=== PATIENT | male | born 1975 | race Caucasian/White ===

== ENCOUNTER 2022-04-24 23:33 | Emergency (ER) | payer MEDICAID ==
[~2022-04-24] VITALS: Ht 167.6 cm; Wt 73.0 kg
[2022-04-25 00:04] VITALS: BP 140/86
[2022-04-25] MEDS ORDERED: CYCLOBENZAPRINE 10MG TABLET PO ONE (00:45)
[2022-04-25] MEDS ORDERED: KETOROLAC 30MG/ML VIAL IM ONE (00:45)
[2022-04-25] MEDS ORDERED: IBUP-2029 MT (02:46)
== END 2022-04-25 03:22 | disposition home or self-care (01) ==
LOC: ER 23:33
DX: S80.01XA Contusion of right knee, initial encounter (principal); S70.01XA Contusion of right hip, initial encounter; S80.11XA Contusion of right lower leg, initial encounter; W07.XXXA Fall from chair, initial encounter; Y93.89 Activity, other specified; Y92.89 Other specified places as the place of occurrence of the external cause; Y99.9 Unspecified external cause status
CPT/HCPCS: 73502; 73562; 96372; 99284; J1885

== ENCOUNTER 2023-05-29 13:06 | Emergency (ER) | payer MEDICAID ==
[~2023-05-29] VITALS: Ht 167.6 cm; Wt 82.0 kg
[~2023-05-29 13:06] MED LIST: IBUP-2029 MT
[2023-05-29 13:08] VITALS: TEMP 98.7; O2SAT 98
[2023-05-29 14:00] VITALS: BP 141/73; PULSE 98; RESP 16
[2023-05-29] MEDS ORDERED: KETOROLAC 60MG/2ML VIAL IM ONE (14:00)
== END 2023-05-29 14:54 | disposition home or self-care (01) ==
LOC: ER 13:29
DX: S40.211A Abrasion of right shoulder, initial encounter (principal); M25.512 Pain in left shoulder; X58.XXXA Exposure to other specified factors, initial encounter; Y93.89 Activity, other specified; Y92.89 Other specified places as the place of occurrence of the external cause; Y99.8 Other external cause status
CPT/HCPCS: 99283; 73030; 96372; J1885